=== PATIENT | female | born 1990 | race American Indian/Alaskan Native ===

== ENCOUNTER 2019-11-07 06:03 | Day surgery (SDC) | payer OTHER ==
[~2019-11-07 06:03] MED LIST: BACITRACIN 50,000 UNIT VIAL IR ONE; GENTAMICIN 40 MG/ML VIAL 2 ML IV ONE; SODIUM CHLORIDE 0.9% IRR 1,000 ML BOTTLE IR ONE; ceFAZolin 1 GM VIAL IV ONE; ceFAZolin/Water 2 GM/20 ML 2 GM/20 ML SYRINGE IV NR
[2019-11-07] MEDS ORDERED: LACTATED RINGERS 1,000 ML IV SCH (06:32)
[2019-11-07] MEDS ORDERED: FAMOTIDINE 20 MG/2 ML INJ IV NR (06:32)
[2019-11-07] MEDS ORDERED: MIDAZOLAM 2 MG/2 ML INJ IV ONE (06:32)
[2019-11-07] MEDS ORDERED: HYDROcodone/ACETAMINOPHEN 5-325 MG TAB PO PRN (06:37)
[2019-11-07] MEDS ORDERED: ONDANSETRON 4 MG/2 ML INJ IV PRN (06:37)
--- NOTE | 2019-11-07 06:37 | Anesthesia Consultation ---
Anesthesia Consult and Med Hx Date of service: 11/07/19 - Airway Anesthetic Teeth Evaluation: Good ROM Head & Neck: Adequate Mental/Hyoid Distance: Adequate Mallampati Class: Class I Intubation Access Assessment: Good - Pulmonary Exam CTA: Yes - Cardiac Exam Cardiac Exam: RRR - Pre-Anesthesia Comment Pre-Anesthesia Comments: Pt has permanent retainer. - Central Nervous System Hx Psychiatric Problems: No - Hematic Hx Anemia: Yes - Other Systems Hx Alcohol Use: Yes (OCCA) Hx Substance Use: Yes (MARIJUANA (LAST USE 11/05/2019)) Hx Cancer: No
--- NOTE | 2019-11-07 06:37 | Anesthesia Day of Surgery ---
Anesthesia Day of Surgery - Day of Surgery Patient Examined: Yes Patient H&P Reviewed: Yes Patient is NPO: Yes
[2019-11-07] MEDS ORDERED: BACTERIOSTATIC SODIUM CHLORIDE 0.9% 30 ML VIAL INFILTRATI ONE (06:38)
[2019-11-07] MEDS ORDERED: BACITRACIN 50,000 UNIT VIAL ONE (07:07)
[2019-11-07] MEDS ORDERED: SODIUM CHLORIDE 0.9% 1000 ML 1,000 ML ONE (07:08)
[2019-11-07] MEDS ORDERED: GENTAMICIN 40 MG/ML VIAL 2 ML ONE (07:08)
[2019-11-07] MEDS ORDERED: ceFAZolin 1 GM VIAL ONE (07:09)
[2019-11-07] MEDS ORDERED: ONDANSETRON 4 MG/2 ML INJ ONE (07:24)
[2019-11-07] MEDS ORDERED: GLYCOPYRROLATE 0.4 MG/2 ML INJ ONE (07:24)
[2019-11-07] MEDS ORDERED: SUCCINYLCHOLINE CHLORIDE 200 MG/10 ML INJ MDV ONE (07:24)
[2019-11-07] MEDS ORDERED: dexAMETHasone 20 MG/5 ML VIAL ONE (07:24)
[2019-11-07] MEDS ORDERED: ROCURONIUM 50 MG/5 ML INJ IV ONE (07:24)
[2019-11-07] MEDS ORDERED: NEOSTIGMINE 10MG/10 ML INJ MDV ONE (07:24)
[2019-11-07] MEDS ORDERED: LIDOCAINE MPF (2%) 20 MG/1 ML VIAL 5 ML ONE (07:24)
[2019-11-07] MEDS ORDERED: PHENYLEPHRINE/NS 1,000 MCG/10 ML SYRINGE (OR USE) IV ONE (07:24)
[2019-11-07] MEDS ORDERED: PROPOFOL 200 MG/20 ML VIAL IV ONE (07:25)
[2019-11-07] MEDS ORDERED: fentaNYL 250 MCG/5 ML INJ ONE (07:25)
[2019-11-07] MEDS ORDERED: LIDOCAINE (1%) 10 MG/1 ML VIAL 20 ML MDV ONE (08:20)
[2019-11-07] MEDS ORDERED: BUPIVACAINE-EPINEPHRINE/PF 0.25%-1:200,000 (30 ML) VIAL INFILTRATI ONE ×3 (08:20→08:23)
[2019-11-07] MEDS ORDERED: LIDOCAINE (1%) 10 MG/1 ML VIAL 20 ML MDV INFILTRATI ONE ×2 (08:23)
[2019-11-07] MEDS ORDERED: BACITRACIN 50,000 UNIT VIAL IR ONE (08:43)
[2019-11-07] MEDS ORDERED: SODIUM CHLORIDE 0.9% IRR 1,000 ML BOTTLE IR ONE (08:43)
[2019-11-07] MEDS ORDERED: GENTAMICIN 40 MG/ML VIAL 2 ML IV ONE (08:43)
[2019-11-07] MEDS ORDERED: ceFAZolin 1 GM VIAL IV ONE (08:43)
[2019-11-07] MEDS ORDERED: methOCARBAMOL 1,000 MG in SODIUM CHLORIDE 0.9% 250ML 250 ML IV STA (11:47)
--- NOTE | 2019-11-07 11:47 | Operative Report ---
Operative Report Operative Report: Plastic Surgery Operative Note Preoperative Diagnosis: Unacceptable cosmetic appearance Postopertive Diagnosis: Same Procedure: Bilateral breast augmentation mammaplasty with silicone implants Surgeon: Dr. Eva Emmanuel Ticket Scheduler: DORINDA Gillette Anesthesia: General endotracheal EBL: 100cc Indications: This patient is a 29 year old AAF who presented with complaint of lost breast fullness and volume after childbearing. She desires a breast lift with implants for a posada, more perky appearance to her breasts. We discussed the benefits and risks of surgery including implant rupture, infection, capsular contracture, ROSANNA-ALCL, infection, hematoma, seroma, scarring and the need for further surgery. Patient understands and accepts these risks and desires to proceed with surgery. Informed consent was obtained. Procedure: After marking in preoperative holding the patient was brought into the operating room and placed supine on the OR table. After induction of adequate general endotracheal anesthesia, the patient's chest and abdomen were prepped and draped in the usual sterile surgical fashion. To begin, markings were refreshed and 1% lidocaine with epinephrine was injected into the incisions. A horizontal incision was made in the right breast to access the pectoralis muscle and fascia. A subpectoral pocket was created. Hemostasis was achieved with electrocautery. The pocket was then irrigated with triple antibiotic solution and a 465cc Oxford smooth round high profile Xtra (SN [id number]), using the Chester funnel was placed without difficulty. The same process was repeated on the left side and the exact same size implant was also placed using the funnel (Left implant 465cc SN [id number]). Once satisfied with implant placement, we began the mastopexy portion of the procedure. Using a tailor-tacking approach, excess skin of the breast and nipple was marked and de-epithelialized. The medial and lateral breast pillars of breast tissue were dissected and then plicated in the midline using 2-0 Monocryl suture. We then began a 3-layered closure with 3-0 Monoderm Quill and sealed all incisions with Dermabond. Telfa and tegaderm dressings were then placed on the breasts, followed by surgical bra. Patient was then awakened from general anesthesia and transferred to PACU in stable condition. There were no complications. All sponge, needle and instrument counts were correct at the end of the case.
[2019-11-07] MEDS: HYDROmorphone 1 MG/1 ML INJ IV PRN ×2 (11:55→12:11)
--- NOTE | 2019-11-07 12:51 | Post Anesthesia Evaluation ---
- Post Anesthesia Evaluation Patient Participated: Yes Airway Patent: Yes Stable Respiratory Function: Yes Temp > 96.8F: Yes Pain Manageable: Yes Adequeate Hydration: Yes Anesthesia Complications: No
[2019-11-07 13:21] VITALS: BP 116/75
== END 2019-11-07 13:54 | disposition home or self-care (01) ==
LOC: OR 06:03
PROVIDERS: ATTEND Plastic Surgery
DX: Z41.1 Encounter for cosmetic surgery (principal); Z79.899 Other long term (current) drug therapy; Z88.5 Allergy status to narcotic agent; Z98.891 History of uterine scar from previous surgery; Z72.89 Other problems related to lifestyle; Z80.42 Family history of malignant neoplasm of prostate; Z98.890 Other specified postprocedural states; Z86.2 Personal history of diseases of the blood and blood-forming organs and certain disorders involving the immune mechanism
CPT/HCPCS: 19316; 19340; 88305; J0330; J0690; J1100; J1170; J1580; J2250; J2370; J2405; J2704; J2710; J2800; J3010; J7030; J7050; J7120